=== PATIENT | male | born 1970 | race Caucasian/White ===

== ENCOUNTER 2016-06-29 00:07 | Outpatient (CLI) | payer OTHER | END 2016-06-29 00:08 | disposition critical access hospital (66) | LOC: EMS 00:07 | PROVIDERS: ATTEND Surgery | DX: R11.2 Nausea with vomiting, unspecified (principal); R06.02 Shortness of breath; R42 Dizziness and giddiness; R05 Cough | CPT/HCPCS: A0425; A0427 ==

== ENCOUNTER 2016-06-29 00:25 | Emergency (ER) | payer OTHER ==
[2016-06-29] MEDS ORDERED: SODIUM CHLORIDE 0.9% 1,000 ML IV ONE (00:34)
[2016-06-29] MEDS ORDERED: IPRATROPIUM/ALBUTEROL 3 ML NEB INH STA (01:14)
[2016-06-29] MEDS ORDERED: IPRATROPIUM/ALBUTEROL 3 ML NEB INH ONE (01:24)
[2016-06-29] MEDS ORDERED: ONDANSETRON ODT 4 MG Prepack 2 TL PRN (02:36)
[2016-06-29] MEDS ORDERED: ONDANSETRON ODT 4 MG Prepack 2 TL ONE (02:49)
== END 2016-06-29 02:50 | disposition home or self-care (01) ==
DX: K52.9 Noninfective gastroenteritis and colitis, unspecified (principal)
CPT/HCPCS: 36415; 71020; 74176; 80053; 83690; 84484; 85025; 87275; 87276; 93005; 94640; 96360; 96361; 99284; J7620

== ENCOUNTER 2018-03-27 08:00 | Outpatient (CLI) | payer OTHER ==
[2018-03-27 18:58] LABS: HGB - HEMOGLOBIN 17.2 g/dL (14.0-18.0); MEAN CORPUSCULAR HEMOGLOBIN 30.2 pg (27.0-31.0); MEAN CORPUSCULAR HGB CONC 33.6 g/dL (32.0-36.0); MEAN PLATELET VOLUME 8.8 fL (7.4-11.4); RED BLOOD COUNT 5.69 10^6/uL (4.70-6.10); RED CELL DISTRIBUTION WIDTH 14.2 % (12.0-15.0); WHITE BLOOD COUNT 12.5 x10^3/uL (4.8-10.8)
[2018-03-27 19:13] LABS: ALBUMIN 4.5 g/dL (3.2-5.5); ALBUMIN/GLOBULIN RATIO 1.3 (1.0-2.2); BILIRUBIN,TOTAL 0.7 mg/dL (0.2-1.0); CALCIUM 9.5 mg/dL (8.5-10.3); CREATININE 0.6 mg/dL (0.6-1.2); CRP - C-REACTIVE PROTEIN 1.8 mg/dL (0-1.0); TOTAL PROTEIN 7.9 g/dL (6.7-8.2); URIC ACID 4.2 mg/dL (2.6-7.2)
== END 2018-03-27 23:59 | disposition home or self-care (01) ==
LOC: LAB.WCP 08:00
PROVIDERS: ATTEND Family Medicine
DX: M25.552 Pain in left hip (principal)
CPT/HCPCS: 36415; 80053; 84550; 85027; 85651; 86140

== ENCOUNTER 2018-12-11 10:11 | Emergency (ER) | payer OTHER ==
[2018-12-11 10:54] LABS: BASOPHILS # (AUTO) 0.1 10^3/uL (0.0-0.1); BASOPHILS % (AUTO) 0.5 %; EOSINOPHILS # (AUTO) 0.2 10^3/uL (0.0-0.7); EOSINOPHILS % (AUTO) 1.7 %; HGB - HEMOGLOBIN 16.1 g/dL (14.0-18.0); LYMPHOCYTES # (AUTO) 2.8 10^3/uL (1.5-3.5); LYMPHOCYTES % (AUTO) 25.8 %; MEAN CORPUSCULAR HEMOGLOBIN 31.2 pg (27.0-31.0); MEAN CORPUSCULAR HGB CONC 35.6 g/dL (32.0-36.0); MEAN CORPUSCULAR VOLUME 87.6 fL (80.0-94.0); MEAN PLATELET VOLUME 10.7 fL (7.4-11.4); MONOCYTES # (AUTO) 0.7 10^3/uL (0.0-1.0); MONOCYTES % (AUTO) 6.3 %; NEUTROPHILS # (AUTO) 6.9 10^3/uL (1.5-6.6); PLT - PLATELET COUNT 214 10^3/uL (130-450); RED BLOOD COUNT 5.16 10^6/uL (4.70-6.10); RED CELL DISTRIBUTION WIDTH 13.2 % (12.0-15.0); WHITE BLOOD COUNT 10.6 x10^3/uL (4.8-10.8)
[2018-12-11 10:58] LABS: BILIRUBIN,URINE NEGATIVE (NEGATIVE); GLUCOSE, URINE (UA) NEGATIVE (NEGATIVE); KETONES,URINE (UA) NEGATIVE (NEGATIVE); LEUKOCYTE ESTERASE, URINE NEGATIVE (NEGATIVE); NITRITE,URINE NEGATIVE (NEGATIVE); OCCULT BLOOD,URINE NEGATIVE (NEGATIVE); PROTEIN,URINE NEGATIVE (NEGATIVE); UROBILINOGEN,URINE 0.2 (NORMAL) E.U./dL (NORMAL)
[2018-12-11 11:01] LABS: CLARITY,URINE CLEAR (CLEAR)
[2018-12-11 11:07] LABS: ALBUMIN 4.2 g/dL (3.2-5.5); ALBUMIN/GLOBULIN RATIO 1.3 (1.0-2.2); BILIRUBIN,TOTAL 0.4 mg/dL (0.2-1.0); CALCIUM 8.7 mg/dL (8.5-10.3); CREATININE 0.6 mg/dL (0.6-1.2); TOTAL PROTEIN 7.4 g/dL (6.7-8.2)
--- NOTE | 2018-12-11 11:59 | ED Physician Documentation ---
History of Present Illness - Stated complaint Stated Complaint: STOMACH PAIN - Chief complaint Chief Complaint: Abd Pain - Additonal information Additional information: This is a 48-year-old male with a history of GERD who presents with abdominal pain. Patient states on Sunday he began developing some right lower quadrant abdominal pain which is sharp and intermittent, worse when he coughs or moves certain ways. This was also accompanied by some diarrhea and some vomiting. His symptoms have persisted in his stomach and become bloated. He currently endorses nausea, has mild to moderate pain in his right lower quadrant. He called his primary care office who asked that he come here for evaluation. No fever or chills, no chest pain or shortness of breath. No history of abdominal surgeries. No testicular pain. Review of Systems Constitutional: denies: Fever Cardiac: denies: Chest pain / pressure Respiratory: denies: Dyspnea GI: reports: Abdominal Pain, Nausea, Vomiting : denies: Dysuria Skin: denies: Rash Neurologic: denies: Generalized weakness Immunocompromised: denies: Immunocompromised PD PAST MEDICAL HISTORY - Past Medical History Cardiovascular: None Respiratory: None Endocrine/Autoimmune: None GI: None : None HEENT: None Psych: Claustrophobia Musculoskeletal: None Derm: None - Past Surgical History Past Surgical History: Yes - Present Medications Home Medications: Ambulatory Orders Medication Instructions Recorded Confirmed Albuterol Sulfate [Proventil Hfa 2 puffs IH Q4HR PRN 06/29/16 06/29/16 Inhaler] Amoxicillin/Potassium Clav 1 tab PO BID 06/29/16 06/29/16 [Augmentin 875-125 Tablet] Ondansetron Odt [Zofran] 4 mg TL Q6H PRN #14 tablet 06/29/16 Ondansetron Odt [Zofran] 4 mg TL Q6H PRN #10 tablet 12/11/18 Simethicone [Gas Relief] 125 mg PO QID PRN #20 capsule 12/11/18 - Allergies Allergies/Adverse Reactions: Allergies Allergy/AdvReac Type Severity Reaction Status Date / Time No Known Drug Allergies Allergy Verified 12/11/18 10:21 - Social History Does the pt smoke?: Yes Smoking Status: Current every day smoker Does the pt drink ETOH?: No Does the pt have substance abuse?: No - Immunizations Immunizations are current?: Yes - POLST Patient has POLST: No PD ED PE NORMAL - Vitals Vital signs reviewed: Yes - General General: Alert and oriented X 3, No acute distress - HEENT HEENT: PERRL - Cardiac Cardiac: RRR - Respiratory Respiratory: No respiratory distress, Clear bilaterally - Abdomen Abdomen: Other (Abdomen is moderately distended, and soft. Patient is mildly tender throughout the abdomen, but most tender in the right lower quadrant. He has a small reducible umbilical hernia with no overlying skin changes. No guarding) - Derm Derm: Warm and dry - Extremities Extremities: No deformity - Neuro Neuro: Alert and oriented X 3 - Psych Psych: Normal mood, Normal affect Results - Vitals Vitals: Vital Signs - 24 hr 12/11/18 12/11/18 12/11/18 10:19 10:58 13:13 Temperature 36.1 C L Heart Rate 76 62 61 Respiratory 16 20 27 H Rate Blood Pressure 184/107 H 152/104 H 146/96 H O2 Saturation 96 97 97 Oxygen O2 Source Room air - Labs Labs: Laboratory Tests 12/11/18 12/11/18 12/11/18 10:32 10:43 10:43 WBC 10.6 RBC 5.16 Hgb 16.1 Hct 45.2 MCV 87.6 MCH 31.2 H MCHC 35.6 RDW 13.2 Plt Count 214 MPV 10.7 Neut # (Auto) 6.9 H Lymph # (Auto) 2.8 [place] # (Auto) 0.7 Eos # (Auto) 0.2 Baso # (Auto) 0.1 Absolute Nucleated RBC 0.00 Nucleated RBC % 0.0 Sodium 137 Potassium 3.6 Chloride 101 Carbon Dioxide 23 Anion Gap 13.0 BUN 20 Creatinine 0.6 Estimated GFR (MDRD) 143 Glucose 100 Calcium 8.7 Total Bilirubin 0.4 AST 22 ALT 28 Alkaline Phosphatase 42 Total Protein 7.4 Albumin 4.2 Globulin 3.2 Albumin/Globulin Ratio 1.3 Lipase 23 Urine Color YELLOW Urine Clarity CLEAR Urine pH 6.0 Ur Specific [place] 1.025 Urine Protein NEGATIVE Urine Glucose (UA) NEGATIVE Urine Ketones NEGATIVE Urine Occult Blood NEGATIVE Urine Nitrite NEGATIVE Urine Bilirubin NEGATIVE Urine Urobilinogen 0.2 (NORMAL) Ur Leukocyte Esterase NEGATIVE Ur Microscopic Review NOT INDICATED Urine Culture Comments NOT INDICATED PD MEDICAL DECISION MAKING - ED course Complexity details: considered differential (Appendicitis, enteritis, gastroenteritis, pancreatitis, abdominal cramps, bloating/gas) ED course: On examination patient does have hypertension, vital signs are otherwise unremarkable. He has a somewhat distended abdomen, which is mildly tender, but is more tender in the right lower quadrant. Labs were drawn, patient was given Zofran for nausea. His labs including CBC ,CMP and lipase are unremarkable. I discussed with the patient that given his reassuring vital signs and labs, we can either pursue a CT scan today to check for appendicitis, or we could wait and have him follow-up closely for repeat abdominal exam. After discussion of the risks and benefits, patient elected to go ahead with a CT scan, which I feel is reasonable given his right lower quadrant pain. CT was performed and shows no obvious cause of his abdominal pain. His appendicitis is visualized and is normal. He has no testicular pain or symptoms, no signs of torsion or other referred pain. It is possible the patient has a gastroenteritis, will prescribe him Zofran, as well as some simethicone for his bloating. I recommended he follow-up with his primary care provider, and that he return to the emergency department with new or worsening symptoms. Patient agreed to this plan and was discharged home Departure - Departure Disposition: 01 Home, Self Care Clinical Impression: Abdominal pain Qualifiers: Abdominal location: right lower quadrant Qualified Code(s): R10.31 - Right lower quadrant pain Condition: Good Instructions: ED Abdominal Pain Unkn Cause Follow-Up: Peggy Yee MD [Primary Care Provider] - As Needed (With any new or persistent symptoms) Prescriptions: Ondansetron Odt [Zofran] 4 mg TL Q6H PRN #10 tablet PRN Reason: Nausea / Vomiting Simethicone [Gas Relief] 125 mg PO QID PRN #20 capsule PRN Reason: Gas Comments: We do not see an obvious cause of your abdominal pain on your labs or CT. You may have a gastroenteritis. You may take Zofran for nausea, Tylenol for abdominal discomfort, and can try simethicone for bloating. If you have worsening Abdominal pain or other new concerning symptoms please return to the emergency department. Otherwise please follow-up with your primary care provider.
[2018-12-11] MEDS ORDERED: ONDANSETRON 4 MG/2 ML VIAL IVP STA (12:21)
[2018-12-11] MEDS ORDERED: IOVERSOL 320 100 ML VIAL IVP ONE ×2 (12:44→15:55)
--- NOTE | 2018-12-11 13:19 | CT Report ---
Reason: bloating, vomiting, RLQ pain Procedure Date: 12/11/2018 Accession Number: [id number] / [id number] Procedure: CT - Abdomen/Pelvis W CPT Code: FULL RESULT: EXAM: CT ABDOMEN AND PELVIS EXAM DATE: 12/11/2018 01:03 PM. CLINICAL HISTORY: Bloating, vomiting, RLQ pain. COMPARISONS: ABDOMEN/PELVIS W/O 06/29/2016 1:54 AM. TECHNIQUE: Routine helical CT imaging was performed through the abdomen and pelvis. IV contrast: OPTI 320 100ML. Enteric contrast: No. Reconstructions: Coronal and sagittal. In accordance with CT protocol optimization, one or more of the following dose reduction techniques were utilized for this exam: automated exposure control, adjustment of mA and/or KV based on patient size, or use of iterative reconstructive technique. FINDINGS: Lung Bases: Unremarkable. Liver: Normal. No masses. Gallbladder/Bile Ducts: Unremarkable. Spleen: Normal. Pancreas: Normal. Adrenal Glands: Normal. Kidneys: Normal. No masses or hydronephrosis. Peritoneal Cavity/Bowel: Normal. No free fluid, free air or adenopathy. No masses or acute inflammatory process. The appendix is well visualized and normal. Pelvic Organs: Normal. The bladder and visualized pelvic organs are within normal limits. Vasculature: No aneurysms or other significant abnormality. Bones: No significant abnormality. Other: None. IMPRESSION: Normal abdomen and pelvis CT. [facility]
[2018-12-11 14:00] VITALS: BP 141/83
== END 2018-12-11 14:00 | disposition home or self-care (01) ==
LOC: ED 10:11
DX: R10.31 Right lower quadrant pain (principal); F17.200 Nicotine dependence, unspecified, uncomplicated
CPT/HCPCS: 36415; 74177; 80053; 81003; 83690; 85025; 96374; 99284; Q9967; 81001; 87086

== ENCOUNTER 2018-12-17 09:45 | Outpatient (CLI) | payer OTHER ==
[2018-12-17 13:32] LABS: H. PYLORIS ANTIGEN STL NEGATIVE (Negative)
== END 2018-12-17 23:59 | disposition home or self-care (01) ==
LOC: LAB.WCP 09:45
PROVIDERS: ATTEND Family Medicine
DX: R19.7 Diarrhea, unspecified (principal); K21.9 Gastro-esophageal reflux disease without esophagitis
CPT/HCPCS: 81599; 83630; 87045; 87046; 87177; 87209; 87338; 87493

== ENCOUNTER 2019-04-05 07:30 | Outpatient (CLI) | payer OTHER ==
--- NOTE | 2019-04-06 23:39 | Ultrasound Report ---
Reason: ABD BLOATING Procedure Date: 04/05/2019 Accession Number: [id number] / [id number] Procedure: US - Abdomen Complete CPT Code: Final Report FULL RESULT: EXAM: ABDOMEN ULTRASOUND EXAM DATE: 04/05/2019 08:38 AM. CLINICAL HISTORY: Right upper quadrant pain. Bloating. COMPARISON: ABDOMEN/PELVIS W/ 12/11/2018 12:57 PM. TECHNIQUE: Real-time scanning was performed with static images obtained. FINDINGS: Liver: Normal in size with heterogeneous echotexture. 14.9 cm. Main portal vein flow: Hepatopetal. Gallbladder: Normal. No stones, wall thickening, or sonographic Almanzar's sign. Biliary System: Common bile duct measures 5 mm. No intrahepatic or extrahepatic ductal dilatation. Pancreas: Visualized portion is unremarkable. Kidneys: Right: 12.9 cm longitudinally. Normal. No contour-deforming mass, stones, or hydronephrosis. Left: 12.1 cm longitudinally. Normal. No contour-deforming mass, stones, or hydronephrosis. Spleen: 10.2 x 3.0 x 10.8 cm. Normal in size and echotexture. Aorta and Inferior Vena Cava: Unremarkable. Other: None. IMPRESSION: Heterogeneous liver, otherwise unremarkable abdomen ultrasound. [facility]
== END 2019-04-05 07:31 | disposition home or self-care (01) ==
LOC: DI 07:30
PROVIDERS: ATTEND Surgery
DX: R14.0 Abdominal distension (gaseous) (principal)
CPT/HCPCS: 76700

== ENCOUNTER 2019-04-14 08:39 | Outpatient (CLI) | payer OTHER ==
[2019-04-14] MEDS ORDERED: SINCALIDE 5 MCG VIAL ONE (10:00)
[2019-04-14] MEDS ORDERED: SINCALIDE IV ONE (14:05)
[2019-04-14] MEDS ORDERED: SODIUM CHLORIDE 0.9% IV ONE (14:05)
--- NOTE | 2019-04-14 16:12 | Nuclear Medicine Report ---
Reason: CHRONIC CHOLECYSTITIS Procedure Date: 04/14/2019 Accession Number: [id number] / [id number] Procedure: NM - Hepatobiliary HIDA w/ Rx CPT Code: Final Report FULL RESULT: EXAM: HEPATOBILIARY SCAN WITH CCK/KINEVAC ADMINISTRATION EXAM DATE: 04/14/2019 02:01 PM. CLINICAL HISTORY: CHRONIC CHOLECYSTITIS. Recent history of abdominal bloating, right upper quadrant pain for 6-8 months. COMPARISON: ABDOMEN COMPLETE 04/05/2019 7:51 AM. TECHNIQUE: Following the intravenous administration of 5.3 mCi of Tc99m Mebrofenin, a hepatobiliary scan was done centered on the liver and gallbladder in multiple sequential images and projections. Following the intravenous administration of 2.8 mcg of CCK/ Kinevac over the course of approximately 60 minutes, dynamic imaging was done and the gallbladder ejection fraction was calculated. FINDINGS: Normal clearance of blood pool activity indicating grossly normal hepatocellular function. Liver size and shape grossly normal. Appearance of tracer in the biliary tree as early as 6 minutes, within normal limits. Appearance of tracer in the gallbladder as early as 12 minutes, within normal limits, with good progression of filling throughout the remainder of the initial hour. Appearance of tracer in the small bowel as early as 21 minutes. Following CCK administration, gallbladder ejection fraction is calculated to be 75%, within the normal range (> 38%). No evidence of significant enterogastric bile reflux. IMPRESSION: 1. No scintigraphic evidence of acute cholecystitis. 2. Patent common bile duct. 3. Gallbladder ejection fraction is within the normal range. 4. No evidence of significant enterogastric bile reflux. [facility]
== END 2019-04-14 08:40 | disposition home or self-care (01) ==
LOC: DI 08:39
PROVIDERS: ATTEND Surgery
DX: K81.1 Chronic cholecystitis (principal); K82.8 Other specified diseases of gallbladder
CPT/HCPCS: 78227; J7040

== ENCOUNTER 2019-06-12 14:42 | Outpatient (CLI) | payer OTHER | END 2019-06-12 14:43 | disposition short-term general hospital (02) | LOC: EMS 14:42 | PROVIDERS: ATTEND Surgery | DX: R07.1 Chest pain on breathing (principal); R11.0 Nausea | CPT/HCPCS: A0425; A0427 ==

== ENCOUNTER 2020-07-09 08:00 | Outpatient (CLI) | payer OTHER ==
[2020-07-09 12:14] LABS: BASOPHILS # (AUTO) 0.1 10^3/uL (0.0-0.1); BASOPHILS % (AUTO) 0.7 %; EOSINOPHILS # (AUTO) 0.3 10^3/uL (0.0-0.7); EOSINOPHILS % (AUTO) 2.9 %; HCT - HEMATOCRIT 50.7 % (42.0-52.0); HGB - HEMOGLOBIN 17.3 g/dL (14.0-18.0); LYMPHOCYTES # (AUTO) 2.6 10^3/uL (1.5-3.5); LYMPHOCYTES % (AUTO) 28.1 %; MEAN CORPUSCULAR HEMOGLOBIN 30.4 pg (27.0-31.0); MEAN CORPUSCULAR HGB CONC 34.1 g/dL (32.0-36.0); MEAN CORPUSCULAR VOLUME 88.9 fL (80.0-94.0); MONOCYTES # (AUTO) 0.7 10^3/uL (0.0-1.0); MONOCYTES % (AUTO) 7.8 %; NEUTROPHILS # (AUTO) 5.5 10^3/uL (1.5-6.6); NEUTROPHILS % (AUTO) 60.2 %; PLT - PLATELET COUNT 228 10^3/uL (130-450); RED CELL DISTRIBUTION WIDTH 13.1 % (12.0-15.0); WHITE BLOOD COUNT 9.1 x10^3/uL (4.8-10.8)
[2020-07-09 12:45] LABS: THYROID STIMULATING HORMONE 2.66 uIU/mL (0.34-5.60)
[2020-07-09 12:47] LABS: ALBUMIN 4.3 g/dL (3.2-5.5); ALBUMIN/GLOBULIN RATIO 1.4 (1.0-2.2); ALKALINE PHOSPHATASE 47 IU/L (42-121); ALT ALANINE AMINOTRANSFERASE 23 IU/L (10-60); AST ASPARTATE AMINOTRANSFERASE 16 IU/L (10-42); BILIRUBIN,TOTAL 0.4 mg/dL (0.2-1.0); BUN - BLOOD UREA NITROGEN 19 mg/dL (6-20); CALCIUM 9.1 mg/dL (8.5-10.3); CARBON DIOXIDE - CO2 24 mmol/L (21-32); CHLORIDE 105 mmol/L (101-111); CHOL/HDL RATIO 5.8 (<5.0); CHOLESTEROL 216 mg/dL; CREATININE 0.8 mg/dL (0.6-1.2); GFR - MDRD 102 (>89); GLUCOSE 114 mg/dL (70-100); HDL CHOLESTEROL 37 mg/dL; LDL CHOLESTEROL,CALCULATED 158 mg/dL; LDL/HDL RATIO 4.3 (<3.6); POTASSIUM 4.2 mmol/L (3.5-5.0); SODIUM 137 mmol/L (135-145); TOTAL PROTEIN 7.3 g/dL (6.7-8.2); TRIGLYCERIDES 105 mg/dL; VLDL CHOLESTEROL 21 mg/dL
== END 2020-07-09 23:59 | disposition home or self-care (01) ==
LOC: LAB.WCP 08:00
PROVIDERS: ATTEND Family Medicine
DX: Z00.00 Encounter for general adult medical examination without abnormal findings (principal); I10 Essential (primary) hypertension; R56.9 Unspecified convulsions; R55 Syncope and collapse
CPT/HCPCS: 36415; 80053; 80061; 83721; 84443; 85025

== ENCOUNTER 2021-11-17 09:58 | Emergency (ER) | payer OTHER ==
[2021-11-17 10:43] LABS: BASOPHILS % (AUTO) 0.5 %; EOSINOPHILS # (AUTO) 0.2 10^3/uL (0.0-0.7); EOSINOPHILS % (AUTO) 2.1 %; HCT - HEMATOCRIT 48.3 % (42.0-52.0); HGB - HEMOGLOBIN 17.2 g/dL (14.0-18.0); LYMPHOCYTES # (AUTO) 1.8 10^3/uL (1.5-3.5); LYMPHOCYTES % (AUTO) 21.1 %; MEAN CORPUSCULAR HEMOGLOBIN 30.9 pg (27.0-31.0); MEAN CORPUSCULAR HGB CONC 35.6 g/dL (32.0-36.0); MEAN CORPUSCULAR VOLUME 86.7 fL (80.0-94.0); MONOCYTES # (AUTO) 0.7 10^3/uL (0.0-1.0); MONOCYTES % (AUTO) 8.1 %; NEUTROPHILS # (AUTO) 5.8 10^3/uL (1.5-6.6); PLT - PLATELET COUNT 240 10^3/uL (130-450); RED BLOOD COUNT 5.57 10^6/uL (4.70-6.10); RED CELL DISTRIBUTION WIDTH 12.8 % (12.0-15.0); WHITE BLOOD COUNT 8.6 x10^3/uL (4.8-10.8)
[2021-11-17 10:47] LABS: BILIRUBIN,URINE NEGATIVE (NEGATIVE); CLARITY,URINE CLEAR (CLEAR); GLUCOSE, URINE (UA) NEGATIVE (NEGATIVE); KETONES,URINE (UA) NEGATIVE (NEGATIVE); LEUKOCYTE ESTERASE, URINE NEGATIVE (NEGATIVE); NITRITE,URINE NEGATIVE (NEGATIVE); OCCULT BLOOD,URINE NEGATIVE (NEGATIVE); PROTEIN,URINE NEGATIVE (NEGATIVE); UROBILINOGEN,URINE 0.2 (NORMAL) E.U./dL (NORMAL)
[2021-11-17 10:59] LABS: ALBUMIN 4.5 g/dL (3.2-5.5); ALBUMIN/GLOBULIN RATIO 1.3 (1.0-2.2); BILIRUBIN,TOTAL 0.6 mg/dL (0.2-1.0); CALCIUM 9.6 mg/dL (8.5-10.3); CREATININE 0.8 mg/dL (0.6-1.2); POTASSIUM 4.1 mmol/L (3.5-5.0); TOTAL PROTEIN 7.9 g/dL (6.7-8.2)
[2021-11-17] MEDS ORDERED: BACITRACIN ZINC OINT 1 PACKET TOP STA (11:51)
--- NOTE | 2021-11-17 11:52 | ED Physician Documentation ---
History of Present Illness - Stated complaint Stated Complaint: ABD PAIN - Chief complaint Chief Complaint: Abd Pain - Additonal information Additional information: 51-year-old male presents emergency department for evaluation of a blister that developed in his umbilicus. He thinks it may have begun yesterday. He does have a history of cholecystectomy and one of the trocar sites is through the umbilicus. Postcholecystectomy he had developed a small umbilical hernia. He is concerned that this blister is communicating with that. He has no pain, no fevers no swelling or erythema. Review of Systems Constitutional: denies: Fever, Chills Eyes: reports: Reviewed and negative Nose: reports: Rhinorrhea / runny nose Cardiac: reports: Reviewed and negative Respiratory: reports: Reviewed and negative GI: denies: Abdominal Pain, Nausea, Vomiting, Constipation, Diarrhea, H ematemesis, Bloody / black stool Skin: reports: Other (Blister on umbilicus) PD PAST MEDICAL HISTORY - Past Medical History Cardiovascular: None Respiratory: None Endocrine/Autoimmune: None GI: GERD, Other : None HEENT: None Psych: None, Claustrophobia Musculoskeletal: None Derm: None - Past Surgical History Past Surgical History: Yes General: Colonoscopy, EGD, Other Ortho: Other - Present Medications Home Medications: Ambulatory Orders Medication Instructions Recorded Confirmed raNITIdine HCL [Zantac] 150 mg PO DAILY 05/09/19 05/09/19 - Allergies Allergies/Adverse Reactions: Allergies Allergy/AdvReac Type Severity Reaction Status Date / Time No Known Drug Allergies Allergy Verified 12/11/18 10:21 - Social History Does the pt smoke?: Yes Smoking Status: Current every day smoker Does the pt drink ETOH?: No Does the pt have substance abuse?: No - Immunizations Immunizations are current?: Yes - POLST Patient has POLST: No PD ED PE EXPANDED - General General: Alert, No acute distress - Abdomen Abdomen: Normal Bowel sounds, Other (Superficial blister within the umbilicus with serous fluid. No tenderness elicited. No surrounding erythema or induration. He does have a small umbilicus hernia that is easily reducible and does not communicate with this blister). No: Tender to palpation, Rebound, Guarding Results - Vitals Vitals: Vital Signs - 24 hr 11/17/21 10:15 Temperature 37.1 C Heart Rate 66 Respiratory 18 Rate Blood Pressure 124/95 H O2 Saturation 100 Oxygen O2 Source Room air - Labs Labs: Laboratory Tests 11/17/21 11/17/21 11/17/21 10:37 10:37 10:37 WBC 8.6 RBC 5.57 Hgb 17.2 Hct 48.3 MCV 86.7 MCH 30.9 MCHC 35.6 RDW 12.8 Plt Count 240 MPV 10.0 Neut # (Auto) 5.8 Lymph # (Auto) 1.8 [place] # (Auto) 0.7 Eos # (Auto) 0.2 Baso # (Auto) 0.0 Absolute Nucleated RBC 0.00 Nucleated RBC % 0.0 Sodium 138 Potassium 4.1 Chloride 102 Carbon Dioxide 27 Anion Gap 9.0 BUN 14 Creatinine 0.8 Estimated GFR (MDRD) 102 Glucose 118 H Calcium 9.6 Total Bilirubin 0.6 AST 19 ALT 23 Alkaline Phosphatase 49 Total Protein 7.9 Albumin 4.5 Globulin 3.4 Albumin/Globulin Ratio 1.3 Lipase 23 Urine Color STRAW Urine Clarity CLEAR Urine pH 6.0 Ur Specific [place] <=1.005 Urine Protein NEGATIVE Urine Glucose (UA) NEGATIVE Urine Ketones NEGATIVE Urine Occult Blood NEGATIVE Urine Nitrite NEGATIVE Urine Bilirubin NEGATIVE Urine Urobilinogen 0.2 (NORMAL) Ur Leukocyte Esterase NEGATIVE Ur Microscopic Review NOT INDICATED Urine Culture Comments NOT INDICATED Procedures - General procedure General procedure: Umbilicus was thoroughly cleansed using ChloraPrep. Utilizing sterile pickups and scissors the blister was lanced. Serous fluid drained. Dermis and ep idermis below is healthy and pink. No evidence of communication to the hernia below. Bacitracin and Band-Aid applied PD MEDICAL DECISION MAKING - ED course Complexity details: reviewed results, re-evaluated patient, d/w patient ED course: 51-year-old male presents with a superficial blister in his umbilicus.. He was concerned that this could communicate with his umbilical hernia. Clinically on exam there is no suggestion of this. Utilizing sterile forceps and scissors the blister was deroofed and bacitracin applied to the umbilical bed. Routine wound care and emergent return precautions discussed Departure - Departure Disposition: 01 Home, Self Care Clinical Impression: Blister Condition: Stable Record reviewed to determine appropriate education?: Yes Comments: Sherif rodriguez did have a blister in your umbilicus. This was superficial and in no way communicates with your hernia. The blister was deroofed. I would like you to gently wash with warm soap and water pat dry apply any antibiotic ointment and a simple bandage. I anticipate that this will heal without any complications over the next week or so. If you have any concerns of infection or complications, increased pain, surrounding redness swelling erythema or vomiting then please return to the emergency department.
[2021-11-17 12:18] VITALS: BP 128/80
== END 2021-11-17 12:22 | disposition home or self-care (01) ==
LOC: ED 09:58
DX: S30.821A Blister (nonthermal) of abdominal wall, initial encounter (principal); X58.XXXA Exposure to other specified factors, initial encounter; F17.200 Nicotine dependence, unspecified, uncomplicated
CPT/HCPCS: 10140; 36415; 80053; 81003; 83690; 85025; 99283; A9270; 81001; 87086

== ENCOUNTER 2021-12-26 10:47 | Outpatient (CLI) | payer OTHER ==
--- NOTE | 2021-12-26 14:09 | XRAY Report ---
PROCEDURE: Hip w/Pelvis 1V LT INDICATIONS: L HIP PX TECHNIQUE: AP pelvis with lateral view of the left hip. COMPARISON: Left hip radiographs 12/12/2021 FINDINGS: Bones: No acute fractures or dislocations. Pelvic ring appears intact. No suspicious bony lesions. Mild joint space narrowing and marginal osteophyte formation is seen in the hips bilaterally. Soft tissues: The visualized bowel gas pattern is normal. No suspicious soft tissue calcifications. 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 Reviewed by: Haider Mary MD on 12/26/2021 1:07 PM [facility] Approved by: Haider Mary MD on 12/26/2021 1:07 PM [facility] Station ID: [id number]
--- NOTE | 2021-12-26 14:19 | XRAY Report ---
PROCEDURE: Lumbar Spine Complete INDICATIONS: LOW BACK PX TECHNIQUE: 5 views of the lumbar spine were acquired. COMPARISON: None. FINDINGS: Bones: 5 [id number] vertebrae are present. There is normal bony alignment. No vertebral body compression fractures. No suspicious bony lesions. Mild multilevel degenerative endplate changes an d possible facet hypertrophy. Soft tissues: Overlying bowel gas pattern is normal. No suspicious soft tissue calcifications. Aor tic atherosclerotic calcifications are present. Right upper quadrant cholecystectomy clips. IMPRESSION: Mild multilevel spondylolysis. No acute osseous abnormality. If symptoms persist or ther e is continued clinical concern, further evaluation with MRI or CT may be helpful. Reviewed by: Haider Mary MD on 12/26/2021 1:17 PM [facility] Approved by: Haider Mary MD on 12/26/2021 1:17 PM [facility] Station ID: [id number]
== END 2021-12-26 10:48 | disposition home or self-care (01) ==
LOC: DI.N 10:47
PROVIDERS: ATTEND Family Medicine
DX: M47.816 Spondylosis without myelopathy or radiculopathy, lumbar region (principal); M16.0 Bilateral primary osteoarthritis of hip

== ENCOUNTER 2022-04-01 10:38 | Outpatient (CLI) | payer OTHER ==
--- NOTE | 2022-04-01 11:19 | XRAY Report ---
PROCEDURE: Hip w/Pelvis 2-3V LT INDICATIONS: LEFT HIP PAIN TECHNIQUE: AP pelvis with lateral view(s) of the left hip(s). COMPARISON: None. FINDINGS: Bones: No fractures or dislocations. Pelvic ring appears intact. No suspicious bony lesions. Soft tissues: The visualized bowel gas pattern is normal. No suspicious soft tissue calcifications. IMPRESSION: No acute fracture. No osseous lesion. If symptoms and/or clinical suspicion for patholog y continue, further assessment with repeat plain films, or advanced imaging (e.g., CT, MRI, or bone s can) is recommended for further assessment. Reviewed by: Alexsander Abdi MD on 04/01/2022 10:18 AM [facility] Approved by: Alexsander Abdi MD on 04/01/2022 10:18 AM [facility] Station ID: [id number]
== END 2022-04-01 10:39 | disposition home or self-care (01) ==
LOC: DI 10:38
PROVIDERS: ATTEND Student in an Organized Health Care Education/Training Program
DX: M25.552 Pain in left hip (principal)